=== PATIENT | female | born 1955 | race Caucasian/White ===

== ENCOUNTER → 2016-06-22 | Outpatient (REF) ==
--- NOTE | 2016-06-22 12:17 | REP ---
AP LATERAL CERVICAL SPINE, THREE VIEWS: HISTORY: Degenerative disc disease. The patient is status post C5-6 disc replacement. There is no acute fracture or subluxation. The intervertebral discs are normal in height. IMPRESSION: The patient is status post C5-6 disc replacement. Signed by Fantasma Elena MD 06/22/2016 12:18 P
--- NOTE | 2016-06-22 12:18 | REP ---
LUMBAR SPINE, THREE VIEWS: HISTORY: Degenerative disc disease. There is no acute fracture or subluxation. The intervertebral discs are normal in height. IMPRESSION: There is no acute fracture or subluxation. Signed by Fantasma Elena MD 06/22/2016 12:18 P
== END ==
LOC: M SMT 11:11
PROVIDERS: ATTEND Internal Medicine
DX: M51.37 Other intervertebral disc degeneration, lumbosacral region (principal); M50.822 Other cervical disc disorders at C5-C6 level